=== PATIENT | female | born 1985 | race Caucasian/White ===

== ENCOUNTER 2017-08-01 19:26 | Emergency (ER) | payer OTHER ==
[~2017-08-01] VITALS: Ht 171.5 cm; Wt 76.8 kg
[2017-08-01 19:50] VITALS: TEMP 36.8; Ht 171.5 cm; Wt 76.8 kg
[2017-08-01] MEDS ORDERED: SODIUM CHLORIDE 0.9% 500ML 500 ML IV STA (20:09)
[2017-08-01] MEDS ORDERED: ONDANSETRON INJ 2 MG/ML 2 ML VIAL IV STA (20:09)
[2017-08-01] MEDS ORDERED: MoRPHine SULFATE 4 MG/ML 1 ML CARP\\VIAL IV STA (20:09)
[2017-08-01] MEDS ORDERED: OPTIRAY 320 IV PRN (20:45)
--- NOTE | 2017-08-01 20:47 | EMERGENCY ROOM VISIT NOTE ---
History Report prepared by Marnie: Maureen Huber Under the Supervision of: Dr. Janie Nguyen M.D. First contact with patient: 20:02 Chief Complaint: ABDOMINAL PAIN Stated Complaint: PAIN IN LOWER RT SIDE OF ABD Nursing Triage Summary: Patient ambulatory to triage with an upright and steady gait, states "Starting around 0600 this morning, I have had severe pain in my right lower abdomen. It hurts to stand, move, do anything. I left work to come here. I have a little bit of diarrhea too." History of Present Illness The patient is a 31 year old female who presents to the Emergency Room with complaints of persistent right sided abdominal pain starting 0600 this morning. The patient describes the pain as sharp and rates it as excruciating. The pain worsens with movement and deep breaths. The pain does not change with eating. She had some diarrhea this morning. She notes that she had a couple days of lower back pain before the abdominal pain started today. She denies any urinary symptoms, fever, or nausea. She ate a dinner of pork chops and rice at 1900 yesterday which is normal for her. She still has her gallbladder. She denies having any medical problems. Her last menstrual period was 2 weeks ago. She denies any chance of . Source of History: patient Onset: 0600 this morning Position: abdomen (right sided) Symptom Intensity: excruciating Quality: sharp Timing: other (persistent) Modifying Factors (Worsening): breathing, movement Associated Symptoms: + back pain, + diarrhea, No fevers, No nausea, No urinary symptoms Review of Systems See HPI for pertinent positives & negatives. A total of 10 systems reviewed and were otherwise negative. Past Medical & Surgical Medical Problems: (1) Alcohol intoxication (2) Alcohol use disorder (3) Depressive disorder Family History No significant family history Social History Smoking Status: Current Every Day Smoker Alcohol Use: occasionally Drug Use: none Marital Status: single Occupation Status: employed Current/Historical Medications Scheduled PRN Amoxicillin & Pot Clavulanate (Augmentin 875-125 mg), 875 MG PO BID PRN for UNDECIDED Allergies Coded Allergies: No Known Allergies (Unverified , 08/01/17) Physical Exam Vital Signs Date Time Temp Pulse Resp B/P (MAP) Pulse Ox O2 Delivery O2 Flow Rate FiO2 08/02/17 01:15 78 16 136/94 99 08/01/17 23:37 78 16 136/94 99 Room Air 08/01/17 22:41 70 16 127/80 100 Room Air 08/01/17 19:50 36.8 87 18 143/83 100 Room Air Physical Exam Vital signs reviewed. General: Well-appearing female, in no significant distress. HEENT: No scleral icterus, PERRLA, neck supple. Atraumatic. Cardiovascular: Regular rate and rhythm, no extra sounds. Pulmonary: Clear to auscultation bilaterally, normal work of breathing. Abdomen: Soft, tenderness to palpation over the RUQ and right periumbilical region, nondistended, positive bowel sounds. Musculoskeletal: Atraumatic, no peripheral edema. Neurologic: Patient awake alert and oriented x 3 Skin: Warm, dry, no rash Medical Decision & Procedures ER Provider Diagnostic Interpretation: Radiology results as stated below per my review and radiologist interpretation: ABDOMINAL ULTRASOUND, RIGHT UPPER QUADRANT HISTORY: Right upper quadrant abdominal pain.. COMPARISON: None. FINDINGS: Pancreas: The pancreas demonstrates a normal echotexture. Liver: Unremarkable. Gallbladder: No gallbladder wall thickening. No gallstones. CBD: 3 mm. Right kidney: No hydronephrosis. 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 IMPRESSION: No significant abnormality identified within the right upper quadrant. Electronically signed by: Chidi Cox M.D. 08/01/2017 10:00 PM Dictated Date/Time: 08/01/2017 9:58 PM ABDOMEN AND PELVIS CT WITH IV AND ORAL CONTRAST CT DOSE: 467.68 mGy.cm HISTORY: Periumbilical pain. Right lower quadrant abdominal pain. TECHNIQUE: Multiaxial CT images of the abdomen and pelvis were performed following the use of intravenous and oral contrast. A dose lowering technique was utilized adhering to the principles of ALARA. COMPARISON STUDY: Abdominal ultrasound 08/01/2017. FINDINGS: The lung bases are clear. No pneumoperitoneum. No pneumatosis. No fractures within the visualized osseous structures. The liver, gallbladder, pancreas, spleen, adrenal glands, and left kidney are unremarkable. The right kidney is slightly atrophic. No hydronephrosis. The bladder, uterus, and bilateral adnexa are unremarkable. No evidence for bowel obstruction. The distal half of the appendix is thickened up to 1 cm in diameter. This is best seen on image 224. IMPRESSION: 1. The distal appendix is thickened up to 1 cm in diameter. This is considered abnormal by CT and raises the possibility of an early acute appendicitis. Clinical correlation recommended. 2. No evidence for bowel obstruction. 3. Mildly atrophic right kidney. Electronically signed by: Chidi Cox M.D. 08/01/2017 10:55 PM Dictated Date/Time: 08/01/2017 10:46 PM Laboratory Results 08/01/17 20:36 Red Blood Count 4.24, Mean Corpuscular Volume 93.2, Mean Corpuscular Hemoglobin 30.4, Mean Corpuscular Hemoglobin Concent 32.7, Mean Platelet Volume 10.9, Neutrophils (%) (Auto) 70.5, Lymphocytes (%) (Auto) 18.4, Monocytes (%) (Auto) 9.4, Eosinophils (%) (Auto) 1.0, Basophils (%) (Auto) 0.3, Neutrophils # (Auto) 5.45, Lymphocytes # (Auto) 1.42, Monocytes # (Auto) 0.73, Eosinophils # (Auto) 0.08, Basophils # (Auto) 0.02 08/01/17 20:36 Test 08/01/17 20:36 White Blood Count 7.73 K/uL (4.8-10.8) Red Blood Count 4.24 M/uL (4.2-5.4) Hemoglobin 12.9 g/dL (12.0-16.0) Hematocrit 39.5 % (37-47) Mean Corpuscular Volume 93.2 fL (80-100) Mean Corpuscular Hemoglobin 30.4 pg (25-34) Mean Corpuscular Hemoglobin Concent 32.7 g/dl (32-36) Platelet Count 255 K/uL (130-400) Mean Platelet Volume 10.9 fL (7.4-10.4) Neutrophils (%) (Auto) 70.5 % Lymphocytes (%) (Auto) 18.4 % Monocytes (%) (Auto) 9.4 % Eosinophils (%) (Auto) 1.0 % Basophils (%) (Auto) 0.3 % Neutrophils # (Auto) 5.45 K/uL (1.4-6.5) Lymphocytes # (Auto) 1.42 K/uL (1.2-3.4) Monocytes # (Auto) 0.73 K/uL (0.11-0.59) Eosinophils # (Auto) 0.08 K/uL (0-0.5) Basophils # (Auto) 0.02 K/uL (0-0.2) RDW Standard Deviation 48.6 fL (36.4-46.3) RDW Coefficient of Variation 14.4 % (11.5-14.5) Immature Granulocyte % (Auto) 0.4 % Immature Granulocyte # (Auto) 0.03 K/uL (0.00-0.02) Urine Color YELLOW Urine Appearance CLEAR (CLEAR) Urine pH 5.5 (4.5-7.5) Urine Specific [place] 1.021 (1.000-1.030) Urine Protein NEG (NEG) Urine Glucose (UA) NEG (NEG) Urine Ketones 1+ (NEG) Urine Occult Blood NEG (NEG) Urine Nitrite NEG (NEG) Urine Bilirubin NEG (NEG) Urine Urobilinogen NEG (NEG) Urine Leukocyte Esterase NEG (NEG) Urine Test NEG (NEG) Anion Gap 11.0 mmol/L (3-11) Est Creatinine Clear Calc Drug Dose 108.7 ml/min Estimated GFR () 112.2 Estimated GFR (Non- 96.8 BUN/Creatinine Ratio 19.9 (10-20) Calcium Level 9.0 mg/dl (8.5-10.1) Magnesium Level 2.1 mg/dl (1.8-2.4) Total Bilirubin 0.3 mg/dl (0.2-1) Direct Bilirubin 0.1 mg/dl (0-0.2) Aspartate Amino Transf (AST/SGOT) 39 U/L (15-37) Alanine Aminotransferase (ALT/SGPT) 22 U/L (12-78) Alkaline Phosphatase 50 U/L (45-117) Total Protein 7.8 gm/dl (6.4-8.2) Albumin 4.0 gm/dl (3.4-5.0) Lipase 214 U/L (73-393) Laboratory results per my review. Medications Administered Medications (Trade) Dose Ordered Sig/Heri Route Start Time Stop Time Status Last Admin Dose Admin Sodium Chloride 500 ml @ 999 mls/hr Q31M STAT IV 08/01/17 20:09 08/01/17 20:39 DC 08/01/17 20:09 999 MLS/HR Morphine Sulfate (MoRPHine SULFATE INJ) 4 mg NOW STAT IV 08/01/17 20:09 08/01/17 20:12 DC 08/01/17 20:09 4 MG Ondansetron HCl (Zofran Inj) 4 mg NOW STAT IV 08/01/17 20:09 08/01/17 20:12 DC 08/01/17 20:09 4 MG ED Course 2006: Past medical records reviewed. The patient was evaluated in room B9. A complete history and physical examination was performed. 2009: Zofran Inj 4 mg IV, Morphine Sulfate 4 mg IV, NSS 500 ml @ 999 mls/hr IV. 2310: I reviewed the patient's case with ALISHA Bender general surgery. The patient will be evaluated for further management. 2320: Upon reevaluation, the patient is resting comfortably. I discussed laboratory and radiographic results with her. She verbalized agreement of the treatment plan. The patient will be evaluated for further management and care. 0100: The patient was discharged home at the request of Dr. Lopes. Medical Decision Differential diagnosis: Etiologies such as appendicitis, diverticulitis, PUD, biliary pathology, UTI, pancreatitis, obstruction, mesenteric ischemia, aortic pathology, infections, inflammatory bowel disease, renal colic, as well as others were entertained. This patient was evaluated and appeared to be in no significant distress. Physical examination reveals tenderness to the right side of the umbilicus. Patient is also mildly tender in the right upper quadrant. IV access was obtained and laboratory work was drawn. Ultrasound of the right upper quadrant was performed and is negative for acute cholecystitis. CT scan of the abdomen and pelvis was performed with IV and oral contrast. This study is concerning for an acute appendicitis. General surgery was consulted. Dr. Lopes evaluated the patient with his PA, William Gomez. They feel the patient is not surgical at this time. She will be discharged on Augmentin and asked to use Tylenol and ibuprofen as needed for pain. She will contact them if symptoms do not improve. The patient will return to the ER for worsening of symptoms or any medical concerns. Medication Reconcilliation Current Medication List: was personally reviewed by me Blood Pressure Screening Patient's blood pressure: Elevated blood pressure Blood pressure disposition: Elevated BP felt to be situational Consults Time Called: [id number] Consulting Physician: ALISHA Bender general surgery Returned Call: [phone] I reviewed the patient's case with him. The patient will be evaluated for further management. Impression Primary Impression: Acute appendicitis Scribe Attestation The scribe's documentation has been prepared under my direction and personally reviewed by me in its entirety. I confirm that the note above accurately reflects all work, treatment, procedures, and medical decision making performed by me. Departure Information Dispostion Home / Self-Care Prescriptions Amoxicillin & Pot Clavulanate (Augmentin 875-125 mg) 1 Tab Tab 875 MG PO BID Y for UNDECIDED for 7 Days, #14 TAB Prov: William Gomez PA-C 08/02/17 Referrals Glenn Lopes M.D. Forms Call Back Authorization, HOME CARE DOCUMENTATION FORM, IMPORTANT VISIT INFORMATION Patient Instructions My [facility] Additional Instructions Diagnosis: Early acute appendicitis Tylenol 650 mg every 6 hours as needed for pain. Ibuprofen 600 mg every 6 hours as needed for pain with food. Take Augmentin as prescribed by Dr. Lopes. Call Dr. Lopes's office for follow-up if symptoms worsen or persist. Return to the emergency department for worsening of symptoms or any medical concerns.
[2017-08-01 20:57] LABS: BASO % 0.3 %; BASO ABS # 0.02 K/uL (0-0.2); EOS ABS # 0.08 K/uL (0-0.5); HEMATOCRIT 39.5 % (37-47); HEMOGLOBIN 12.9 g/dL (12.0-16.0); IG# 0.03 K/uL (0.00-0.02); LYMPH % 18.4 %; LYMPH ABS # 1.42 K/uL (1.2-3.4); MEAN CELL VOLUME 93.2 fL (80-100); MEAN CORPUSCULAR HEMOGLOBIN 30.4 pg (25-34); MEAN CORPUSCULAR HGB CONC 32.7 g/dl (32-36); MEAN PLATELET VOLUME 10.9 fL (7.4-10.4); MONO % 9.4 %; MONO ABS # 0.73 K/uL (0.11-0.59); NEUT % 70.5 %; NEUT ABS # 5.45 K/uL (1.4-6.5); PLATELET COUNT 255 K/uL (130-400); RED CELL DISTRIBUTION WIDTH CV 14.4 % (11.5-14.5); RED CELL DISTRIBUTION WIDTH SD 48.6 fL (36.4-46.3); WHITE BLOOD COUNT 7.73 K/uL (4.8-10.8)
[2017-08-01 21:03] LABS: CREATININE 0.81 mg/dl (0.60-1.20); POTASSIUM 3.6 mmol/L (3.5-5.1)
[2017-08-01 21:06] LABS: TOTAL PROTEIN 7.8 gm/dl (6.4-8.2)
--- NOTE | 2017-08-01 22:01 | DIAGNOSTIC IMAGING REPORT ---
ABDOMINAL ULTRASOUND, RIGHT UPPER QUADRANT HISTORY: Right upper quadrant abdominal pain.. COMPARISON: None. FINDINGS: Pancreas: The pancreas demonstrates a normal echotexture. Liver: Unremarkable. Gallbladder: No gallbladder wall thickening. No gallstones. CBD: 3 mm. Right kidney: No hydronephrosis. 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 IMPRESSION: No significant abnormality identified within the right upper quadrant. Electronically signed by: Chidi Cox M.D. 08/01/2017 10:00 PM Dictated Date/Time: 08/01/2017 9:58 PM
--- NOTE | 2017-08-01 22:56 | DIAGNOSTIC IMAGING REPORT ---
ABDOMEN AND PELVIS CT WITH IV AND ORAL CONTRAST CT DOSE: 467.68 mGy.cm HISTORY: Periumbilical pain. Right lower quadrant abdominal pain. TECHNIQUE: Multiaxial CT images of the abdomen and pelvis were performed following the use of intravenous and oral contrast. A dose lowering technique was utilized adhering to the principles of ALARA. COMPARISON STUDY: Abdominal ultrasound 08/01/2017. FINDINGS: The lung bases are clear. No pneumoperitoneum. No pneumatosis. No fractures within the visualized osseous structures. The liver, gallbladder, pancreas, spleen, adrenal glands, and left kidney are unremarkable. The right kidney is slightly atrophic. No hydronephrosis. The bladder, uterus, and bilateral adnexa are unremarkable. No evidence for bowel obstruction. The distal half of the appendix is thickened up to 1 cm in diameter. This is best seen on image 224. IMPRESSION: 1. The distal appendix is thickened up to 1 cm in diameter. This is considered abnormal by CT and raises the possibility of an early acute appendicitis. Clinical correlation recommended. 2. No evidence for bowel obstruction. 3. Mildly atrophic right kidney. Electronically signed by: Chidi Cox M.D. 08/01/2017 10:55 PM Dictated Date/Time: 08/01/2017 10:46 PM
--- NOTE | 2017-08-02 00:36 | Surgery Consultation ---
Consultation Date of Consultation: Aug 02, 2017. Attending Physician: Reason for Consultation: RLQ abdominal pain History of Present Illness The patient is a 31 year old female with complaints of abdominal pain beginning at her umbilicus and extending to her RLQ which started this morning around approximately 0600. States the pain woke her up from sleep. Rates her pain as a 10/10 despite receiving 4mg of IV morphine in the ED at 2009. Reports she feels pain with movement. States she went to work today but had to leave early because her pain was not subsiding and she needed to goto the ED. Denies any problems like this in the past. Denies nausea, vomiting, fever, chills or recent illness. States she last ate this morning around 0300. Denies any previous abdominal surgeries. Denies use of any blood thinning or anticoagulant medications. Past Medical/Surgical History Medical Problems: (1) Alcoholic intoxication Status: Acute (2) Depression Status: Acute (3) Self-inflicted laceration of wrist Status: Acute (4) Suicidal ideation Status: Acute (5) Suicide gesture Status: Acute Family History No significant family history Social History Smoking Status: Current Every Day Smoker Drug Use: none Occupation Status: employed Allergies Coded Allergies: No Known Allergies (Unverified , 08/01/17) Home Medications No Active Prescriptions or Reported Meds Current Inpatient Medications Current Inpatient Medications Medications (Trade) Dose Ordered Sig/Heri Route Start Time Stop Time Status Last Admin Dose Admin Ioversol (Optiray 320) 100 ml UD PRN IV 08/01/17 20:45 08/05/17 20:44 Review of Systems Constitutional: No fever, No chills Respiratory: No cough Cardiovascular: No chest pain Abdomen: + pain (RLQ), No nausea, No vomiting, No diarrhea, No constipation Genitourinary - Female: No dysuria Integumentary: No color change Physical Exam Date Time Temp Pulse Resp B/P (MAP) Pulse Ox O2 Delivery O2 Flow Rate FiO2 08/01/17 23:37 78 16 136/94 99 Room Air 08/01/17 22:41 70 16 127/80 100 Room Air 08/01/17 19:50 36.8 87 18 143/83 100 Room Air General Appearance: WD/WN, no apparent distress Head: normocephalic, atraumatic ENT: hearing grossly normal Neck: trachea midline Respiratory/Chest: no respiratory distress, no accessory muscle use Abdomen/GI: no organomegaly, no pulsatile mass, + tenderness (RLQ TTP), + guarding Neurologic/Psych: alert, normal mood/affect, oriented x 3 Skin: normal color, warm/dry Laboratory Results Last 24 Hours Test 08/01/17 20:36 White Blood Count 7.73 K/uL Red Blood Count 4.24 M/uL Hemoglobin 12.9 g/dL Hematocrit 39.5 % Mean Corpuscular Volume 93.2 fL Mean Corpuscular Hemoglobin 30.4 pg Mean Corpuscular Hemoglobin Concent 32.7 g/dl Platelet Count 255 K/uL Mean Platelet Volume 10.9 fL Neutrophils (%) (Auto) 70.5 % Lymphocytes (%) (Auto) 18.4 % Monocytes (%) (Auto) 9.4 % Eosinophils (%) (Auto) 1.0 % Basophils (%) (Auto) 0.3 % Neutrophils # (Auto) 5.45 K/uL Lymphocytes # (Auto) 1.42 K/uL Monocytes # (Auto) 0.73 K/uL Eosinophils # (Auto) 0.08 K/uL Basophils # (Auto) 0.02 K/uL RDW Standard Deviation 48.6 fL RDW Coefficient of Variation 14.4 % Immature Granulocyte % (Auto) 0.4 % Immature Granulocyte # (Auto) 0.03 K/uL Urine Color YELLOW Urine Appearance CLEAR Urine pH 5.5 Urine Specific [place] 1.021 Urine Protein NEG Urine Glucose (UA) NEG Urine Ketones 1+ Urine Occult Blood NEG Urine Nitrite NEG Urine Bilirubin NEG Urine Urobilinogen NEG Urine Leukocyte Esterase NEG Urine Test NEG Sodium Level 139 mmol/L Potassium Level 3.6 mmol/L Chloride Level 102 mmol/L Carbon Dioxide Level 26 mmol/L Anion Gap 11.0 mmol/L Blood Urea Nitrogen 16 mg/dl Creatinine 0.81 mg/dl Est Creatinine Clear Calc Drug Dose 108.7 ml/min Estimated GFR () 112.2 Estimated GFR (Non- 96.8 BUN/Creatinine Ratio 19.9 Random Glucose 81 mg/dl Calcium Level 9.0 mg/dl Magnesium Level 2.1 mg/dl Total Bilirubin 0.3 mg/dl Direct Bilirubin 0.1 mg/dl Aspartate Amino Transf (AST/SGOT) 39 U/L Alanine Aminotransferase (ALT/SGPT) 22 U/L Alkaline Phosphatase 50 U/L Total Protein 7.8 gm/dl Albumin 4.0 gm/dl Lipase 214 U/L Assessment & Plan RLQ abdominal pain. No leukocytosis, CT findings show mildly dilated distal end of appendix at 1 cm without periappendiceal inflammation or stranding. RLQ likely musculoskeletal in origin, cannot r/o early appendicitis. No plans for surgical intervention at this time. Plan to d/c on course of Augmentin to cover for early appendicitis. Patient may take Motrin and Tylenol PRN for pain. Advised to return if her symptoms do not improve or worsen. Dr. Lopes in to see and examine patient. Please contact with questions or concerns.
[2017-08-02] MEDS ORDERED: AMOX875T PO (00:42)
[2017-08-02 01:15] VITALS: BP 136/94; PULSE 78; O2SAT 99
== END 2017-08-02 01:24 | disposition home or self-care (01) ==
LOC: C.EDB 19:28
DX: K35.80 Unspecified acute appendicitis (principal); R10.31 Right lower quadrant pain; F17.200 Nicotine dependence, unspecified, uncomplicated; Z91.5 Personal history of self-harm

== ENCOUNTER 2019-05-14 23:54 | Inpatient (IN) ==
[2019-05-15] MEDS ORDERED: BUTORPHANOL TARTRATE 1 MG/ML VIAL IV ONE (02:57)
[2019-05-15] MEDS ORDERED: BUTORPHANOL TARTRATE 1 MG/ML VIAL ONE (03:24)
[2019-05-15] MEDS ORDERED: OXYTOCIN 30 UNITS/500 ML BAG IV PRN ×2 (04:30→08:53)
[2019-05-15] MEDS ORDERED: BUPIVACAINE 0.25% 30 ML VIAL ONE (04:37)
[2019-05-15] MEDS ORDERED: fentaNYL 2MCG/ML ROPIV 1.25MG/ML 100 ML BAG EPI ONE (04:37)
[2019-05-15] MEDS ORDERED: ePHEDrine sulfate 50 MG/ML AMP ONE (04:37)
[2019-05-15] MEDS ORDERED: fentaNYL citrate 100 MCG/2 ML VIAL ONE (04:37)
[2019-05-15] MEDS: LACTATED RINGER'S 1,000 ML IV PRN ×2 (04:41→07:03)
[2019-05-15 04:53] LABS: Hematocrit (blood only) 34.3 % (37-47); Hemoglobin 11.4 g/dL (12.0-16.0); Mean Corpuscular Hemoglobin 29.8 pg (25-34); Mean Corpuscular Volume 89.8 fL (80-100); Mean Platelet Volume 11.8 fL (7.4-10.4); Platelet Count 268 K/uL (130-400); RDW Coefficient of Variation 14.5 % (11.5-14.5); RDW Standard Deviation 47.6 fL (36.4-46.3); Red Blood Count 3.82 M/uL (4.2-5.4); White Blood Count 23.56 K/uL (4.8-10.8)
--- NOTE | 2019-05-15 05:11 | Anesthesiology Consultation ---
Date of Service May 15, 2019 Assessment & Plan (1) Encounter for pre-operative examination: Chart Review Chart Review: Acceptable Risk for Labor Epidural History Height/Weight Height: 5 ft 7 in Weight: 103.419 kg Allergies Allergy/AdvReac Type Severity Reaction Status Date / Time No Known Allergies Allergy Verified 05/08/19 14:41 Medications Active Medications Generic Name Dose Route Start Last Admin Trade Name Freq PRN Reason Stop Dose Admin Lactated Ringer's 1,000 mls @ 125 mls/hr 05/15/19 04:30 05/15/19 04:41 Lr IV 05/17/19 04:29 125 mls/hr .Q8H PRN Administration L&D Protocol Protocol Past Medical History Medical History Alcohol intoxication (Resolved) Depressive disorder (Chronic) Dystonic drug reaction (Acute) Fall in (into) shower or empty bathtub, initial encounter (Acute) Flu-like symptoms Foot fracture, right (Inactive) Right shoulder strain (Acute) Past Family History Family History Grandmother (Maternal) Diabetes Hypertension Mother Cervical cancer Other No significant family history Past Surgical History Surgical History No history of previous surgery Social History Smoking Status: Current every day smoker tobacco type: cigarettes Smoking cigarettes per day: 8 Hx Alcohol Use: No Hx Substance Use: No substance use type: does not use Physical Exam Vital Signs Last Vital Signs Temp 36.7 C 05/15/19 03:30 Pulse 64 05/15/19 05:08 Resp 20 05/15/19 03:30 BP 141/84 H 05/15/19 03:39 Pulse Ox 89 L 05/15/19 05:08 Testing Laboratory Results 05/15/19 04:44
[2019-05-15] MEDS ORDERED: NALOXONE HCL 1 MG in SODIUM CHLORIDE 0.9% 1000ML 1,000 ML IV PRN (05:39)
[2019-05-15] MEDS ORDERED: ePHEDrine sulfate 50 MG/ML AMP IV PRN (05:39)
[2019-05-15] MEDS ORDERED: NALOXONE HCL 0.4 MG/1 ML VIAL/CARP IV PRN (05:39)
[2019-05-15] MEDS ORDERED: fentaNYL 2MCG/ML ROPIV 1.25MG/ML 100 ML BAG EPI PRN (05:39)
[2019-05-15] MEDS ORDERED: ONDANSETRON INJ 2 MG/ML 2 ML VIAL IV PRN (05:39)
[2019-05-15 05:51] LABS: Mean Corpuscular Hgb Conc 33.2 g/dL (32-36)
--- NOTE | 2019-05-15 07:21 | History & Physical Report ---
Date of Service May 15, 2019 Assessment & Plan (1) Supervision of normal first : (2) Active labor at term: pt has been admitted. labs. last cx exam per nurse 9cm. pt resting. fhts categ 1, 2. need to trace fhts during ctx better. History of Present Illness Chief Complaint: regular ctx and ? gush Primary Care Provider: NO PCP 33yo 1 P0 at 38+wks ega presents to L&D with above cc. Has been to L&D twice with concern for rom, again had small gush on arrival to L&D but ctx more regular and cx changed ultimately to 4cm and admitted. Of note, pt was not suspected to have rom, neg nitrazine. She received epidural for anesthesia. pnc c/b smoker pnl rh pos, rubella immune, gbs neg obh: g1 gynh: no stds, normal pap smears pmh: neg psh: neg Allergies Allergy/AdvReac Type Severity Reaction Status Date / Time No Known Allergies Allergy Verified 05/08/19 14:41 Patient History Medical History Alcohol intoxication (Resolved) Depressive disorder (Chronic) Dystonic drug reaction (Acute) Fall in (into) shower or empty bathtub, initial encounter (Acute) Flu-like symptoms Foot fracture, right (Inactive) Right shoulder strain (Acute) Surgical History No history of previous surgery Family History Grandmother (Maternal) Diabetes Hypertension Mother Cervical cancer Other No significant family history Social History (Updated 01/19/19 @ 12:46 by Italia Avila) Preferred Language: Polish Communication Ability: Effective Visual Impairment: No Limitations Hearing Ability: Normal Beliefs That Will Affect Care: None marital status: Single Current Living Situation: Significant Other current occupational status: employed Other Information That Helps Us Care for You: No Feels Safe at Home: Yes Safety Concerns: Feels Safe At This Time Smoking Status: Current every day smoker Tobacco Type: cigarettes ; packs per day: 1 ; Cigarettes Per Day: 8 ; Hx Alcohol Use: No Hx Substance Use: No Review of Systems as per Subjective / HPI Physical Exam Constitutional: WD/WN, vitals as above Respiratory: normal respiratory effort, lungs clear to auscultation Cardiovascular: Rate/Rhythm: regular rate and regular rhythm Gastrointestinal (Abdomen): soft gravid nt Musculoskeletal: no edema nontender calves Neurologic: grossly normal Psychiatric: A+Ox3, euthymic affect Genitourinary: OB Exam Monitor Tracing: + external FHT monitor used (130 mod variability reactive), + external uterine monitor used (q1-4) and + normal FHT variability Results & Data Vital Signs (Past 12 Hours) Vital Signs Temp Pulse Resp BP Pulse Ox 05/15/19 07:10 99 H 97 05/15/19 07:05 88 143/85 H 95 05/15/19 07:00 78 96 05/15/19 06:59 18 05/15/19 06:55 94 H 94 05/15/19 06:50 82 143/81 H 95 05/15/19 06:45 84 95 05/15/19 06:40 97 H 94 05/15/19 06:36 91 H 141/80 H 05/15/19 06:35 89 95 05/15/19 06:30 96 H 20 95 05/15/19 06:25 89 96 05/15/19 06:21 83 140/79 05/15/19 06:20 81 94 05/15/19 06:15 80 94 05/15/19 06:10 84 94 05/15/19 06:05 78 95 05/15/19 06:04 71 136/64 05/15/19 06:00 74 18 94 05/15/19 05:59 78 136/74 05/15/19 05:55 73 20 95 05/15/19 05:54 81 134/71 05/15/19 05:50 99 H 20 97 05/15/19 05:49 99 H 118/67 05/15/19 05:45 98.6 F 78 20 94 05/15/19 05:43 81 130/71 05/15/19 05:41 77 130/74 05/15/19 05:40 74 20 125/74 94 05/15/19 05:37 65 125/69 05/15/19 05:35 60 20 131/64 90 05/15/19 05:34 64 87 L 05/15/19 05:33 70 132/73 05/15/19 05:31 85 130/74 05/15/19 05:30 108 H 20 100 05/15/19 05:25 96 H 97 05/15/19 05:20 98 H 100 05/15/19 05:15 104 H 100 05/15/19 05:13 55 L 87 L 05/15/19 05:10 71 91 05/15/19 05:08 64 89 L 05/15/19 05:05 88 100 05/15/19 05:00 78 100 05/15/19 04:55 96 H 100 05/15/19 04:50 98 H 100 05/15/19 04:45 87 100 05/15/19 04:40 91 H 100 05/15/19 04:37 68 87 L 05/15/19 04:35 84 100 05/15/19 04:30 67 90 05/15/19 04:29 60 86 L 05/15/19 04:25 98 H 99 05/15/19 04:22 67 89 L 05/15/19 04:20 78 91 05/15/19 04:16 70 87 L 05/15/19 04:15 98 H 99 05/15/19 04:11 69 88 L 05/15/19 04:10 82 99 05/15/19 04:05 61 77 L 05/15/19 04:03 70 87 L 05/15/19 04:00 75 91 05/15/19 03:56 70 86 L 05/15/19 03:55 74 93 05/15/19 03:50 64 90 05/15/19 03:47 64 87 L 05/15/19 03:45 73 97 05/15/19 03:40 90 95 05/15/19 03:39 77 141/84 H 05/15/19 03:30 98.1 F 20 05/15/19 00:11 98.1 F 90 20 133/66 05/15/19 00:08 90 133/66 Code Status & VTE Plan VTE Prophylaxis Plan VTE Prophylaxis will be ordered: No
[2019-05-15] MEDS ORDERED: DIPHTHERIA/TETANUS/PERTUSSIS 0.5 ML SYR/VIAL IM ONE (08:53)
[2019-05-15] MEDS ORDERED: ACETAMINOPHEN 325 MG TAB PO PRN (08:53)
[2019-05-15] MEDS ORDERED: LACTATED RINGER'S 1,000 ML IV SCH (08:53)
[2019-05-15] MEDS ORDERED: SUPERCREAM 0.870% 15 GM JAR EXT PRN (08:53)
[2019-05-15] MEDS ORDERED: IBUPROFEN 600 MG TAB PO PRN (08:53)
[2019-05-15] MEDS ORDERED: OXYCODONE/ACETAMINOPHEN 5mg/325mg TAB PO PRN (08:53)
[2019-05-15] MEDS ORDERED: BISACODYL 10 MG SUPP PR PRN (08:53)
[2019-05-15] MEDS ORDERED: HYDROCORTISONE ACETATE 25 MG SUPP PR PRN (08:53)
[2019-05-15] MEDS ORDERED: BENZOCAINE 20% AER SPR 82.5 GM CAN EXT PRN (08:53)
--- NOTE | 2019-05-15 09:11 | Delivery Summary ---
Vaginal Delivery Summary Date of Service May 15, 2019 Vaginal Delivery Summary Vaginal Delivery Summary: Pre-delivery diagnoses: 33yo @ 38 3/7, spontaneous labor, smoker Post-delivery diagnoses: same Procedure: spontaneous vaginal delivery Surgeon: Margarita Lamb DO Complications: none Findings: Viable female . Apgars: 8/9. Weight pending, please see nursery records. Estimated blood loss: 300ml Description of delivery: The patient progressed to complete with epidural anesthesia. She then began to push. She spontaneously vaginally delivered a viable from the cephalic presentation. The head delivered in FARHAD position. The anterior shoulder delivered, followed by the posterior shoulder, followed by the body all at once. Cord wrapped around body x1. The baby was placed on mother's abdomen and a spontaneous cry was heard. Delayed cord clamping was employed, and the cord was doubly clamped and cut. Cord blood was obtained. The placenta was delivered spontaneously intact with a 3-vessel cord. The uterus and vagina were swept of clots and debris. IV pitocin was given. The uterus became firm. The cervix, vagina, and perineum were inspected and a 2nd degree perineal laceration and bilateral superficial periclitoral lac erations were noted. The 2nd degree perineal lac was repaired with 3-0 vicryl in standard fashion, and the periclitoral lacerations were hemostatic and therefore not repaired. Excellent hemostasis was observed. The mother and baby are recovering in stable and good condition in the room. Sponge, needle and instrument counts were correct x 2. Margarita Lamb DO [facility] [place]
--- NOTE | 2019-05-15 09:57 | Anesthesia Procedure Note ---
Date of Service May 15, 2019 Anesthesia Post Epidural Note Vital Signs Vital Signs: Temp Pulse Resp BP Pulse Ox 36.7 C 86 20 116/58 L 98 05/15/19 07:05 05/15/19 09:35 05/15/19 09:05 05/15/19 09:50 05/15/19 08:05 Pain Intensity Bilateral Abdomen: Pain Intensity: 0 Notes Mental Status: alert / awake / arousable and participated in evaluation Patient Amnestic to Procedure: Yes Nausea / Vomiting: adequately controlled Pain: adequately controlled Airway Patency, RR, SpO2: stable & adequate BP & HR: stable & adequate Hydration State: stable & adequate Anesthetic Complications: no major complications apparent and Pt Satisfied with anesthetic care
[2019-05-15] MEDS: DOCUSATE SODIUM 100 MG CAP PO SCH (20:13)
[2019-05-16] MEDS ORDERED: LIDOCAINE HCL 2% MPF (LOCAL) 5 ML VIAL INFIL ONE (04:13)
--- NOTE | 2019-05-16 05:29 | Obstetrical Progress Note ---
Date of Service <Jett Abreu MD - Last Filed: 05/16/19 06:48> May 16, 2019 Assessment & Plan <Jett Abreu MD - Last Filed: 05/16/19 06:48> (1) : <Margarita Lamb DO - Last Filed: 05/16/19 08:16> (1) : Subjective <Jett Abreu MD - Last Filed: 05/16/19 06:48> Ms. Lockhart is a 33 y/o female ; PPD #1 following spontaneous vaginal delivery at 38+ weeks; doing well this morning; having some abdominal cramping/pain; voiding well, with some discomfort following small tear during delivery; tolerating meals overnight; and able to ambulate some; some persistent spotting with intermittent improvement this morning. Review of Systems Constitutional: denies fever; chills; sweats; headache Respiratory: denies shortness of breath, difficulty breathing Cardiac: denies chest pain; palpitations; chest pressure Breast: denies breast pain : denies dysuria Physical Exam <Jett Abreu MD - Last Filed: 05/16/19 06:48> General: alert; oriented; no acute distress Cardiac: RRR; no m/g/r Respiratory: CTAB a/p; no wheezes/rales/rhonchi; no increased work of breathing; symmetrical chest rise; no respiratory distress Abdomen: soft; NT/ND; bowel sounds positive Uterus: uterine fundus firm; palpable 2cm below umbilicus Lower extrem: no lower extremity edema or swelling; no deep calf pain; Krish's sign negative b/l Results & Data <Jett Abreu MD - Last Filed: 05/16/19 06:48> Vital Signs (Past 12 Hours) Vital Signs Temp Pulse Resp BP 05/16/19 03:45 36.6 C 94 H 18 112/73 05/16/19 00:00 36.9 C 93 H 18 113/75 05/15/19 20:12 36.5 C 97 H 18 129/79 Laboratory Results 05/16/19 Range/Units 05:58 WBC 19.00 H (4.8-10.8) K/uL RBC 3.34 L (4.2-5.4) M/uL Hgb 10.0 L (12.0-16.0) g/dL Hct 30.7 L (37-47) % MCV 91.9 (80-100) fL MCH 29.9 (25-34) pg MCHC 32.6 (32-36) g/dL RDW Std Deviation 49.0 H (36.4-46.3) fL RDW Coeff of Melina 14.7 H (11.5-14.5) % Plt Count 259 (130-400) K/uL MPV 11.6 H (7.4-10.4) fL Medications Administered Current Inpatient Medications Acetaminophen (Tylenol) 650 mg PO Q6H PRN PRN Reason: Pain/CAICEDO/Fever Stop: 06/14/19 08:52 Benzocaine (Dermoplast Pain Relieving [place]) 1 appln EXT PRN PRN PRN Reason: Perineal Discomfort Stop: 06/14/19 08:52 Last Admin: 05/15/19 14:20 Dose: 1 appln Documented by: Bisacodyl (Dulcolax) 5 mg PO 1999 [facility] Stop: 05/16/19 20:01 Bisacodyl (Dulcolax) 10 mg [place] DAILY PRN PRN Reason: No BM on 2nd post- day Stop: 06/14/19 08:52 Cocaine HCl (Supercream 0.870%) 1 gm EXT BID PRN PRN Reason: Hemorrhoidal Inflammation Stop: 05/29/19 08:52 Docusate Sodium (Colace) 100 mg PO DAILY@08,21 [facility] Stop: 06/14/19 20:59 Last Admin: 05/15/19 20:13 Dose: 100 mg Documented by: Hydrocortisone (Anusol Hc) 25 mg [place] BID PRN PRN Reason: Hemorrhoidal Inflammation Stop: 06/14/19 08:52 Oxytocin (Pitocin) 30 units in 500 mls @ 333.333 mls/hr IV .Q1H30M PRN; Protocol PRN Reason: Bleeding Control Stop: 06/14/19 08:52 Lactated Ringer's (Lr) 1,000 mls @ 125 mls/hr IV .Q8H [facility] Stop: 06/14/19 08:52 Ibuprofen (Motrin) 600 mg PO Q4H PRN PRN Reason: Pain/CAICEDO/Cramping/Fever Stop: 06/14/19 08:52 Last Admin: 05/15/19 19:02 Dose: 600 mg Documented by: Oxycodone/Acetaminophen (Percocet 5mg/325mg) 1 tab PO Q4H PRN PRN Reason: Pain not relieved by... Stop: 05/29/19 08:52 Prenat Multivit/Caddy/Caddie Supervisor/Iron/Folic Ac ( Vitamin) 1 tab PO DAILY@08 [facility] Stop: 06/15/19 07:59 <Margarita Lamb DO - Last Filed: 05/16/19 08:16> Co-Signing Physician Notes Resident Physician Supervision Note: I was present with Dr. Abreu during the history and exam. I discussed the case with the resident and agree with the findings and plan as documented in the n ote. Any exceptions or clarifications are listed here: PPD#1 doing well. Wants to go home today if baby is discharged. Followup 6w PP. Documented By: Margarita Lamb DO Resident Activity Tracking <Jett Abreu MD - Last Filed: 05/16/19 06:48> Resident Involvement: Resident Care Provided Care Provided: OB Delivery
[2019-05-16 06:23] LABS: Hematocrit (blood only) 30.7 % (37-47); Mean Corpuscular Hemoglobin 29.9 pg (25-34); Mean Corpuscular Hgb Conc 32.6 g/dL (32-36); Mean Corpuscular Volume 91.9 fL (80-100); Mean Platelet Volume 11.6 fL (7.4-10.4); Platelet Count 259 K/uL (130-400); RDW Coefficient of Variation 14.7 % (11.5-14.5); Red Blood Count 3.34 M/uL (4.2-5.4)
[2019-05-16] MEDS ORDERED: PRENATAL VITAMIN 1 TAB PO SCH (08:00)
[2019-05-16] MEDS: DOCUSATE SODIUM 100 MG CAP PO SCH (08:45)
[2019-05-16] MEDS ORDERED: BISACODYL 5 MG TABEC PO SCH (20:00)
== END 2019-05-16 14:25 | disposition home or self-care (01) | DRG 807 ==
LOC: OPB 23:54 → 4S1 23:57 → 4S2 05-15 13:27